=== PATIENT | male | born 1965 | race Caucasian/White ===

== ENCOUNTER 2018-01-02 11:53 | Emergency (ER) | payer SELFPAY ==
[2018-01-02 12:22] VITALS: BP 153/94
--- NOTE | 2018-01-02 12:40 | UC ---
Abdominal Pain Male HPI - HPI Summary HPI Summary: 52 yo male presents with intermittent RUQ pain over the last week. He tells me that he lives in [facility] and is here visiting for 10 days and is returning to [place] in 3 days. About 5-6 days ago he developed RUQ cramping after eating and some loose stools that appeared cardiac catheterization technologist in color. No SOB, chest pain, n/v. Since that time he has had this pain after eating. Over the last 24 hours he has not eaten anything and feels much better and has not had any pain, but is worried that when he eats again the pain may return. Has not taken anything OTC for his pain. Denies fever, chills, SOB, chest pain, n/v. - History of Current Complaint Chief Complaint: UCAbdominalPain Stated Complaint: ABDOMINAL PAIN Time Seen by Provider: 01/02/18 12:18 Hx Obtained From: Patient Onset/Duration: Sudden Onset Severity Initially: Mild Severity Currently: Mild Pain Intensity: 2 Pain Scale Used: 0-10 Numeric Aggravating Factor(s): Food PMH/Surg Hx/FS Hx/Imm Hx Cardiovascular History: Hypertension - Surgical History Surgical History: None - Family History Known Family History: Positive: None - Social History Occupation: Employed Full-time Lives: With Family Alcohol Use: Daily Substance Use Type: None Smoking Status (MU): Never Smoked Tobacco Review of Systems Constitutional: Negative Skin: Negative Respiratory: Negative Cardiovascular: Negative Gastrointestinal: Abdominal Pain Genitourinary: Negative Neurovascular: Negative Neurological: Negative Psychological: Negative All Other Systems Reviewed And Are Negative: Yes Physical Exam - Summary Physical Exam Summary: GENERAL: NAD. Obese. No pain distress. SKIN: No rashes, sores, lesions, or open wounds. NECK: Supple. Nontender. No lymphadenopathy. CHEST: CTAB. No r/r/w. No accessory muscle use. Breathing comfortably and in no distress. CV: RRR. Without m/r/g. Pulses intact. Cap refill <2seconds ABDOMEN: Soft. NTTP. No distention or guarding. No CVA tenderness. Bowel sounds present. Negative hassan's sign. NEURO: Alert. PSYCH: Age appropriate behavior. Triage Information Reviewed: Yes Vital Signs: Initial Vital Signs Temp 98 F 01/02/18 12:18 Pulse 89 01/02/18 12:18 Resp 18 01/02/18 12:18 BP 153/94 01/02/18 12:18 Pulse Ox 98 01/02/18 12:18 Vital Signs Reviewed: Yes Abd Pain Male Course/Dx - Course Course Of Treatment: Discussed with pt that his symptoms are likely related to his gallbladder. He declined U/S today and is only interested in diet advice and pain control until he can return to [place] in 3 days. We discussed, at length , a diet for suspected cholelithiasis/biliary colic and signs/symptoms that warrent further eval in the ED. Pt was agreeable to this. - Differential Dx/Clinical Impression Provider Diagnoses: Biliary colic Discharge - Sign-Out/Discharge Documenting (check all that apply): Patient Departure All imaging exams completed and their final reports reviewed: No Studies - Discharge Plan Condition: Stable Disposition: HOME Prescriptions: Ibuprofen TAB* [Motrin TAB* 600 MG] 600 mg PO Q8H PRN #15 tab PRN Reason: Pain traMADol TAB* [Ultram*] 50 mg PO Q12H PRN #6 tab MDD 2 PRN Reason: Pain Patient Education Materials: Biliary Colic (ED), Gallstones (ED) Referrals: No Primary Care Phys,NOPCP [Primary Care Provider] - Additional Instructions: If you develop a fever, shortness of breath, chest pain, new or worsening symptoms - please call your PCP or go to the ED. Your blood pressure was high at todays visit. Please see your primary provider within 4 weeks for recheck and re-evaluation. 1) Avoid fatty foods as in handout 2) If your pain worsens or if you develop a fever - please go to the ER - Billing Disposition and Condition Condition: STABLE Disposition: Home
== END 2018-01-02 12:45 | disposition home or self-care (01) ==
LOC: UCEAST 11:53
DX: K80.50 Calculus of bile duct without cholangitis or cholecystitis without obstruction (principal)
CPT/HCPCS: 99202; G0463